=== PATIENT | female | born 1990 | race African-American/Black ===

== ENCOUNTER 2016-12-27 17:40 | Inpatient (IN) ==
[2016-12-27] MEDS ORDERED: Vancomycin 1,000 MG in D5% in Water 250 ML IVPB ONE (18:36)
[2016-12-27] MEDS ORDERED: Tdap (Boostrix) Vaccine 0.5 ML SYRINGE IM ONE (18:37)
[2016-12-27] MEDS ORDERED: Ketorolac 15 MG/ML VIAL IVP ONE (18:37)
--- NOTE | 2016-12-27 18:41 | Emergency Department Note ---
Disposition Clinical Impression: Abscess of skin or subcutaneous tissue Qualifiers: Site of cutaneous abscess: extremity Site of cutaneous abscess of extremity: hand Laterality: right Qualified Code(s): L02.511 - Cutaneous abscess of right hand Cellulitis Qualifiers: Site of cellulitis: extremity Site of cellulitis of extremity: upper extremity Laterality: right Qualified Code(s): L03.113 - Cellulitis of right upper limb Disposition: Admitted As Inpatient Condition: Fair Skin/Abscess/FB HPI Chief complaint: ED Skin/Abscess/Foreign Body Stated complaint: abscess to right hand, arm swelling Time Seen by Provider: 12/27/16 18:24 Source: patient, family Mode of arrival: private vehicle Limitations: no limitations Nursing Notes Reviewed: Yes Vital Signs Reviewed: Yes Pt Subjective Complaint: abscess/boil, other (hand swelling, redness and pain) Onset (ago): day(s) (3) Tetanus Up to Date: no Location: R hand Severity: severe Quality: stabbing, aching, sharp Consistency: constant Improves with: immobilization, rest Worsens with: palpation, movement Context: other (Unsure, patient states, "It just popped up." Patient does have some scratches on both hands which she states are from a kitten. She also has Hx of IVDA but denies recent use. ) Associated symptoms: Denies: fever, chills, rigors, itching, nausea, vomiting, malaise, arthralgias, myalgias, cough, shortness of breath Treatments prior to arrival: none Home Medications Medication Instructions Recorded Confirmed Multivitamin [One Daily 1 each PO DAILY 12/27/16 12/27/16 Multivitamin] Allergies Allergy/AdvReac Type Severity Reaction Status Date / Time Penicillins Allergy Hives Verified 01/10/15 11:27 All systems ED: reviewed and negative except as stated. Review of Systems: As Per HPI Constitutional: Denies: fever, chills, weakness Cardiovascular: Denies: chest pain, palpitations Respiratory: Denies: dyspnea Gastrointestinal: Denies: abdominal pain, nausea, vomiting Neurological: Denies: headache, weakness, numbness, paresthesias Hematological/Lymphatic: Denies: easy bleeding, easy bruising Past Medical History - Past Medical History Attestation: Yes The following information was validated with the patient. Source: patient, old records reviewed, nursing notes reviewed Medical history: Reports: no medical history Psychiatric history: Reports: no psych history LMP comments: none - Social History Smoking Status: Current every day smoker Smokeless Tobacco Status: No Alcohol use: Reports: occasionally Drug use: Reports: none, marijuana, IV Drug Use Physical Exam - General Limitations: no limitations General appearance: alert, in no apparent distress, appears intoxicated - Head Head exam: atraumatic, normocephalic, normal inspection - Eye Eye exam: Present: normal appearance, PERRL. Absent: scleral icterus, conjunctival injection, periorbital swelling - ENT ENT exam: mucous membranes moist - Neck Neck exam: Present: normal inspection - Chest Chest inspection: Present: normal inspection - Respiratory Respiratory exam: Absent: respiratory distress - Cardiovascular Cardiovascular exam: Present: normal rhythm, tachycardia, normal heart sounds - Extremities Exam Extremities exam: Present: tenderness, normal capillary refill, joint swelling - Expanded Upper Extremity Exam Shoulder exam: Present: normal inspection, full ROM. Absent: tenderness, swelling, erythema Arm exam: Present: normal inspection. Absent: tenderness, swelling, erythema Elbow exam: Present: normal inspection, full ROM. Absent: tenderness, swelling , erythema Forearm/Wrist exam: Present: full ROM, tenderness, swelling, erythema Hand exam: Present: tenderness, swelling, erythema. Absent: full ROM Hand L/R front image: 1 - other (tender abscess) 2 - other (edema, tenderness, mild erythema) Neuromotor exam: Normal: wrist extension, thumb IP flexion, thumb adduction, fingers 2-5 abduction. Abnorm: thumb opposition Neurosensory exam: Normal: radial nerve, ulnar nerve. Abnorm: median nerve ( decreased sensation in right palm) Hand tendon exam: Normal: flexor digitorum profundus (location), flexor digitorum superficialis (location), extensor tendon (location) (painful passive and active extension of right fingers 2-5) Vascular exam: Normal: capillary refill, radial pulse, ulnar pulse - Neurological Exam Neurological exam: Present: alert, oriented X3, CN II-XII intact, normal gait - Psychiatric Psychiatric exam: Present: normal affect, normal mood - Skin Skin exam: Present: warm, dry, intact, normal color Course Course Narrative: Patient has an abscess on the, right hand with circumferential edema, tenderness and mild erythema to the right hand. The edema and erythema extends to the distal portion of the right forearm. There is no lymphangitic streaking. She has tenderness to palpation in the wrist and hand. She has pain with passive extension of the right fingers. She is afebrile, but is mildly tachycardic. There does appear to be track fair on the dorsal aspect of the right hand. However, patient denies current IV drug use. We will update her tetanus, obtain CBC and basic metabolic panel and an x-ray, given a dose of IV vancomycin and consult with orthopedist. Case was discussed with Dr. Lawson. He recommends admission to the hospitalist. He or one of his partners will consult on the patient in the morning. Case was discussed with Dr. Mccauley. He has had [id number] time with the patient and agrees with the assessment, plan. The patient has been moved out of fast-track and into his zone. Labs and x-rays are still pending. Case was discussed with the hospitalist. She has accepted the patient for admission. - Consultations Consultation #1: Dr. Lawson paged Time: 18:39 Vital Signs Temperature 98.3 F 12/27/16 18:16 Pulse Rate 102 12/27/16 18:16 Respiratory Rate 16 12/27/16 18:16 Blood Pressure 95/57 12/27/16 18:16 O2 Sat by Pulse Oximetry 97 12/27/16 18:16 Temperature 98.2 F 12/27/16 21:45 Pulse Rate 70 12/27/16 21:45 Respiratory Rate 16 12/27/16 21:45 Blood Pressure 105/69 12/27/16 21:45 O2 Sat by Pulse Oximetry 97 12/27/16 21:45 Oxygen Delivery Oxygen Delivery Room Air Skin/Abscess/Foreign Body - Medical Records Medical records reviewed: Yes I reviewed the patient's medical records. - Lab Data Result diagrams: 12/27/16 20:30 12/27/16 20:30 Attestation Statement - Attestation Attestation: For this encounter, I have reviewed the OFFICE EXECUTIVE or PA documentation, treatment plan, and medical decision making; and I have had face to face time with this patient.
[2016-12-27] MEDS ORDERED: 0.9 % Sodium Chloride 1,000 ML IVC ONE (19:37)
[2016-12-27] MEDS ORDERED: *HR* Promethazine 25 MG/ML VIAL IM ONE (19:38)
[2016-12-27] MEDS ORDERED: *HR* OxyCODONE/APAP 5/325 TABLET PO ONE (19:38)
[2016-12-27] MEDS ORDERED: *HR* Promethazine 25 MG/ML VIAL IVP PRN (19:50)
[2016-12-27] MEDS ORDERED: Ondansetron 4 MG/2 ML VIAL IVP PRN (19:50)
[2016-12-27] MEDS ORDERED: Acetaminophen 325 MG TABLET PO PRN (19:50)
[2016-12-27] MEDS ORDERED: Naloxone 0.4 MG/ML INJ IVP PRN (19:50)
[2016-12-27 20:49] LABS: Basophils % 0.6 %; Eosinophils # 0.5 K/mcL (0.0-0.6); Eosinophils % 8.6 %; Hematocrit 28.2 % (35.3-44.9); Hemoglobin 8.7 g/dL (11.5-15.4); Immature Granulocytes % 0.2 % (0-4); Mean Corpuscular HGB Conc 30.9 g/dL (31.6-35.5); Mean Corpuscular Hemoglobin 22.5 pg (28.0-33.3); Mean Corpuscular Volume 72.9 fL (83.0-100.0); Mean Platelet Volume 10.6 fL (9.4-12.4); Monocytes # 0.7 K/mcL (0.0-1.3); Monocytes % 12.2 %; Neutrophils # 2.2 K/mcL (1.6-8.9); Platelet Count 241 K/mcL (140-400); Red Blood Count 3.87 M/mcL (3.82-4.97); Red Cell Distribution Width 18.7 % (11.5-14.5); Segmented Neutrophils % 41.4 %
[2016-12-27 21:00] LABS: BUN/Creatinine Ratio 12 (6-26); Blood Urea Nitrogen 8 mg/dL (7-20); C-Reactive Protein 35 mg/L (Less than 5); Calcium 8.8 mg/dL (8.6-10.8); Carbon Dioxide 26 mEq/L (19-29); Chloride 105 mEq/L (98-109); Glucose 98 mg/dL (70-99); Osmolality,Calculated 284 (280-300); Potassium 3.9 mEq/L (3.5-4.5); Sodium 138 mEq/L (136-145); eGFR For African Americans > 60 (> 60); eGFR For Non-African Americans > 60 (> 60)
--- NOTE | 2016-12-27 21:38 | Internal Med History&Physical ---
Date of Encounter: 12/27/16 Time of Encounter: 20:00 Assessment and Plan (1) Abscess of right hand Current visit: Yes Status: Acute Will admit the pt into Med Surg Reviewed X ray - no acute fracture, no foreign body noticed Pt denied any trauma.. any IV drug abuse over Rt hand however there are needle fair concerning for source of inf Will start her on empirical abx with Clinda which can cover both MRSA and Anaerobic coverage Cont close monitoring keep hand elevated Ortho consulted by ER. reviewed ESR and CRP will check CK total No signs of compartment syndrome as of now will get MRI of Rt hand / wrist for better eval Cont IV analgesics (2) Cellulitis of right hand Current visit: Yes Status: Acute (3) IV drug abuse Current visit: Yes Status: Acute counseled to quit drugs will check UDS Will watch for any withdrawal symptoms (4) Tobacco dependence Current visit: Yes Status: Acute Counseled to quit on nicotine patch Internal Medicine - H&P: HPI Chief complaint: Rt hand swelling Admitted From: Emergency Dept Plans for Post Hospital Care: Home History of present illness: Ms. Vargas is a 26 year old female with known IV drug abuse pt, no significant PMH pt presented to ER with c/o Rt wrist swelling and erythema, as well as severe tenderness. As per pt it started as a small pimple in the [place] side then noticed worsening swelling Rt hand dorsum and wrist region. Her pain 10/10 in severity, stabbing type pain. She did mention previous history of abscess, but does not know about MRSA Past Med Surg Social Fam HX - Past Medical History Medical history: no medical history Psychiatric history: no psych history - Social History Smoking Status: Current every day smoker Smokeless Tobacco Status: No Alcohol use: occasionally Drug use: none, marijuana, IV Drug Use - Additional Family History Additional family history: Family hsitory reviewed and non contribuitory to current problem. Internal Medicine - H&P: Meds Multivitamin [One Daily Multivitamin] 1 each PO DAILY 12/27/16 [History] 3 Allergy/AdvReac Type Severity Reaction Status Date / Time Penicillins Allergy Hives Verified 01/10/15 11:27 All Systems PM: A 10-system review of systems was performed and is negative for pertinent findings except as documented above in the HPI. Review of systems: All the systems are reviewed everything is benign except the systems and symptoms I mentioned in the history of present illness - Constitutional Vitals: Temp Pulse Resp BP Pulse Ox 98.3 F 100 20 98/58 98 12/27/16 18:16 12/27/16 21:07 12/27/16 21:07 12/27/16 21:07 12/27/16 21:07 General appearance: Present: A&O X 3, no acute distress, answers questions appropriately - Head Head exam: Present: atraumatic, normal inspection - Neck Neck exam general surgery: Present: supple - Respiratory Respiratory exam: Present: decreased breath sounds. Absent: rales, respiratory distress, rhonchi, wheezes - Cardiovascular Cardiovascular exam: Present: RRR, +S1, +S2. Absent: systolic murmur - Extremities Exam Additional comments: Patient has an abscess on the, right hand with circumferential edema, tenderness and mild erythema to the right hand. The edema and erythema extends to the distal portion of the right forearm. - Expanded Upper Extremities Exam Hand wrist exam: Present: erythema, swelling, tenderness - Back Exam Back exam: Absent: CVA tenderness (L), CVA tenderness (R) - Neurological Exam Neurological exam: Present: alert, oriented X3 - Psychiatric Psychiatric exam: Present: normal affect, normal mood - Skin Skin exam: Present: dry Internal Med - H&P Results - Labs CBC & Chem 7: 12/27/16 20:30 12/27/16 20:30 Labs: Short CBC 12/27/16 Range/Units 20:30 WBC 5.3 (4.3-11.1) K/mcL Hgb 8.7 L (11.5-15.4) g/dL Hct 28.2 L (35.3-44.9) % Plt Count 241 (140-400) K/mcL Neutrophils # 2.2 (1.6-8.9) K/mcL BMP 12/27/16 20:30 Sodium 138 Potassium 3.9 Chloride 105 Carbon Dioxide 26 BUN 8 Creatinine 0.69 Glucose 98 Calcium 8.8
[2016-12-28] MEDS: Clindamycin 600 MG/50 ML 600 MG/50 ML IV.SOLN IVPB SCH ×3 (00:21→15:15)
--- NOTE | 2016-12-28 06:18 | Orthopedic Consult Note ---
Date of Encounter: 12/28/16 Time of Encounter: 06:15 Assessment and Plan (1) Abscess of skin or subcutaneous tissue Current Visit: Yes Status: Acute I did discuss the diagnosis in great detail to patient. She has a right palm abscess as well as another phlegmon/abscess on the volar radial and distal aspect of the forearm. Treatment options were discussed and my recommendation was for incision, drainage, irrigation, debridement of both areas in order to help facilitate treatment of the infection as well as to obtain cultures. The risks discussed included but were not limited to stiffness, bleeding, infection , blood clots, damage to neurovascular structures, tendons, ligaments, and bone. Also discussed was the risk of continued symptoms and possible need for further procedures. I did discuss the risk of injury to the radial artery given the proximity to the abscess. She did verbalize consent and a signed formal consent was obtained. The sterile field was set up around the right hand and wrist area and a total of 20 mL of 1% lidocaine with epinephrine were injected into the areas of abscess. The distal forearm area a 1 cm longitudinal incision was made over the area of maximal induration and the soft tissue was spread bluntly and no gross purulence was obtained. The area was packed open. In the palm a small 1 cm oblique incision was made and gross purulence was encountered which was cultured. The wound was copiously irrigated and the wound was packed open with quarter-inch gauze packing. A sterile dressing was applied. I recommendation at this point is IV antibiotics per the primary team as well as elevation and Toradol. I will follow clinically with you. No plans for operative intervention at this time. She can eat. Qualifiers: Site of cutaneous abscess: extremity Site of cutaneous abscess of extremity : hand Laterality: right Qualified Code(s): L02.511 - Cutaneous abscess of right hand History of Present Illness HPI: Ms. Vargas is a 26 year old female known IV drug user who was admitted to the hospitalist with a right palmar abscess. Orthopedics was consulted to assist in the evaluation and management of this. On my evaluation the patient had initially denied injecting recently to the right hand but after discussing that this was most likely an injection type injury she did admit to injecting cocaine into the dorsal aspect of her right hand 2 weeks ago. She still denies injecting into the right palm or anywhere else otherwise. She says that she thinks a blister developed in that area which turned into the infection. Nevertheless she says she has had pain for about 2-3 days without any associated numbness, tingling, or any other associated signs or symptoms. She denies any other infections. She says the pain is worse with movement and use without any other modifying factors. She has no other complaints and denies any feelings of illness. Past Med Surg Social Fam HX - Past Medical History Medical history: no medical history Psychiatric history: no psych history - Social History Smoking Status: Current every day smoker Smokeless Tobacco Status: No Alcohol use: occasionally Drug use: none, marijuana, IV Drug Use Medications and Allergies Multivitamin [One Daily Multivitamin] 1 each PO DAILY 12/27/16 [History] 3 Allergy/AdvReac Type Severity Reaction Status Date / Time Penicillins Allergy Hives Verified 01/10/15 11:27 All Systems Reviewed: Constitutional and musculoskeletal systems were reviewed and are negative unless otherwise stated in history of present illness. Physical Exam - Constitutional Vitals: Temp Pulse Resp BP Pulse Ox 98.0 F 66 12 111/75 100 12/28/16 04:51 12/28/16 04:51 12/28/16 04:51 12/28/16 04:51 12/28/16 04:51 CONSTITUTIONAL -Vitals reviewed -The patient is well developed, well nourished, well groomed PSYCHIATRIC -Fully alert and oriented -Pleasant mood RIGHT UPPER EXTREMITY Inspection shows that the skin and the soft tissue envelope are intact. There are 2 raised indurated areas, one in the palm just distal to the proximal flexion crease between the index and long finger metacarpal head areas. Also on the volar radial aspect of the distal forearm there is a small raised area with induration. Minimal surrounding cellulitis throughout. Moderate swelling to the hand and the forearm area though all compartments are soft and compressible. She has tenderness to palpation both of these areas. She has no pain with active and passive motion of the shoulder or elbow. Moderate pain with wrist motion referred to the area of abscess. She grossly flex and extend the digits with stiffness related to edema and pain. It is difficult to palpate the radial artery given the area of infection. Diagnostic Imaging: I did personally review and interpret the x-ray, CT scan and MRI of the right hand which did show an area of phlegmon/abscess in the volar radial and distal forearm area and the volar palm. These appear to be superficial. Results - Labs Result Diagrams: 12/27/16 20:30 12/27/16 20:30 Labs: Abnormal lab results Hgb 8.7 g/dL (11.5-15.4) L 12/27/16 20:30 Hct 28.2 % (35.3-44.9) L 12/27/16 20:30 MCV 72.9 fL (83.0-100.0) L 12/27/16 20:30 MCH 22.5 pg (28.0-33.3) L 12/27/16 20:30 MCHC 30.9 g/dL (31.6-35.5) L 12/27/16 20:30 RDW 18.7 % (11.5-14.5) H 12/27/16 20:30 ESR 54 mm/hr (0-15) H 12/27/16 20:30 C-Reactive Protein 35 mg/L (Less than 5) H 12/27/16 20:30 All other labs normal. Consult Discharge Plan - Plan Referrals: NONE,PCP [Primary Care Provider] -
[2016-12-28 07:29] LABS: Eosinophils # 0.3 K/mcL (0.0-0.6); Eosinophils % 6.1 %; Hematocrit 26.9 % (35.3-44.9); Hemoglobin 8.2 g/dL (11.5-15.4); Lymphocytes # 1.7 K/mcL (0.6-4.6); Lymphocytes % 40.5 %; Mean Corpuscular HGB Conc 30.5 g/dL (31.6-35.5); Mean Corpuscular Volume 72.3 fL (83.0-100.0); Monocytes # 0.5 K/mcL (0.0-1.3); Neutrophils # 1.6 K/mcL (1.6-8.9); Platelet Count 181 K/mcL (140-400); Red Blood Count 3.72 M/mcL (3.82-4.97); Red Cell Distribution Width 18.7 % (11.5-14.5); Segmented Neutrophils % 40.4 %
[2016-12-28] MEDS: *HR* HYDROcodone/Acet 5/325 mg TABLET PO PRN ×2 (12:49→17:48)
[2016-12-28 14:33] LABS: Creatine Kinase 123 Units/L (29-168)
[2016-12-28] MEDS: *HR* Morphine 2 MG/ML SYRINGE IVP PRN (15:15)
--- NOTE | 2016-12-28 18:25 | Internal Med Progress Note ---
Date of Encounter: 12/28/16 Time of Encounter: 11:00 - Assessment and plan (1) Abscess of right hand Current Visit: Yes Status: Acute Assessment and plan: -Incision and drainage today by orthopedic surgery -Cultures were taken and are pending -Continue IV clindamycin and pain control (2) IV drug abuse Current Visit: Yes Status: Acute Assessment and plan: -Urine drug tox pending (3) Tobacco dependence Current Visit: Yes Status: Acute Assessment and plan: Will discuss smoking cessation - Subjective Interval history: No acute events overnight. - Constitutional Vitals: Temp Pulse Resp BP Pulse Ox 98.2 F 80 18 105/65 93 12/28/16 14:57 12/28/16 14:57 12/28/16 14:57 12/28/16 14:57 12/28/16 14:57 General appearance: Present: A&O X 3, no acute distress, answers questions appropriately - Respiratory Respiratory exam: Present: CTAB. Absent: accessory muscle use, rales, rhonchi, wheezes - Cardiovascular Cardiovascular exam: Present: RRR, +S1, +S2. Absent: diastolic murmur, gallop, rubs, systolic murmur Internal Medicine: Result - Labs CBC & Chem 7: 12/28/16 07:17 12/27/16 20:30 Labs: Short CBC 12/28/16 Range/Units 07:17 WBC 4.1 L (4.3-11.1) K/mcL Hgb 8.2 L (11.5-15.4) g/dL Hct 26.9 L (35.3-44.9) % Plt Count 181 (140-400) K/mcL Neutrophils # 1.6 (1.6-8.9) K/mcL Consult Discharge Plan - Plan Referrals: NONE,PCP [Primary Care Provider] -
[2016-12-29] MEDS: Clindamycin 600 MG/50 ML 600 MG/50 ML IV.SOLN IVPB SCH ×3 (01:10→15:04)
[2016-12-29] MEDS: *HR* HYDROcodone/Acet 5/325 mg TABLET PO PRN ×4 (01:12→16:37)
[2016-12-29] MEDS: *HR* Morphine 2 MG/ML SYRINGE IVP PRN (07:00)
--- NOTE | 2016-12-29 07:31 | Orthopedics Progress Note ---
Date of Encounter: 12/29/16 Time of Encounter: 07:28 - Assessment and Plan (1) Abscess of skin or subcutaneous tissue Current Visit: Yes Status: Acute I did discuss the diagnosis in great detail to patient. She has a right palm abscess as well as another phlegmon/abscess on the volar radial and distal aspect of the forearm. Treatment options were discussed and my recommendation was for incision, drainage, irrigation, debridement of both areas in order to help facilitate treatment of the infection as well as to obtain cultures. The risks discussed included but were not limited to stiffness, bleeding, infection , blood clots, damage to neurovascular structures, tendons, ligaments, and bone. Also discussed was the risk of continued symptoms and possible need for further procedures. I did discuss the risk of injury to the radial artery given the proximity to the abscess. She did verbalize consent and a signed formal consent was obtained. The sterile field was set up around the right hand and wrist area and a total of 20 mL of 1% lidocaine with epinephrine were injected into the areas of abscess. The distal forearm area a 1 cm longitudinal incision was made over the area of maximal induration and the soft tissue was spread bluntly and no gross purulence was obtained. The area was packed open. In the palm a small 1 cm oblique incision was made and gross purulence was encountered which was cultured. The wound was copiously irrigated and the wound was packed open with quarter-inch gauze packing. A sterile dressing was applied. I recommendation at this point is IV antibiotics per the primary team as well as elevation and Toradol. I will follow clinically with you. No plans for operative intervention at this time. She can eat. Qualifiers: Site of cutaneous abscess: extremity Site of cutaneous abscess of extremity : hand Laterality: right Qualified Code(s): L02.511 - Cutaneous abscess of right hand Subjective Interval history: S: Resting in bed comfortably. The patient has no new complaints. Persistent pain to the right hand and volar wrist area. Per the nursing staff she lacks herself in the bathroom multiple times with the family member/friend, during which the activities are not entirely clear. O: Afebrile and vital signs are stable Evaluation of the right hand and the wrist shows moderate swelling diffusely of the hand and distal forearm area with expected tenderness over the I&D sites. The packing is removed and there is no purulent drainage. The patient can grossly flex and extend the digits with limitation due to pain and swelling. The fingertips are all grossly sensate and well-perfused, and the radial artery pulse is 2+. A: Post-incision, drainage, irrigation, and debridement of the right palm and volar forearm P: At this point my recommendation is continue local wound care (daily dressing and packing changes), strict elevation, occupational therapy to work on digital motion exercises, and antibiotics per the primary team. Objective Vital signs: Vital Signs Temp Pulse Resp BP Pulse Ox 12/29/16 06:43 98.2 F 97 16 123/76 98 12/28/16 23:05 97.9 F 93 16 118/70 98 12/28/16 19:06 98.8 F 82 16 93/58 100 12/28/16 14:57 98.2 F 80 18 105/65 93 12/28/16 11:07 98.4 F 91 18 107/64 93 Intake and Output 12/28/16 12/28/16 12/29/16 15:59 23:59 07:59 Intake Total 340 / 340 700 / 700 850 / 850 Balance 340 / 340 700 / 700 850 / 850 Intake: IV Fluids 100 / 100 50 / 50 Cleocin Premix 600 MG/50 ML 600 100 / 100 50 / 50 mg In 50 ml @ 50 mls/hr IVPB Q8HR [facility] Rx#:[id number] Oral 240 / 240 700 / 700 800 / 800 Other: Meal Breakfast Dinner Percent of Meal Consumed 75% 50% # Voids 2 3 - Labs CBC & BMP: 12/28/16 07:17 12/27/16 20:30 Labs: Abnormal lab results WBC 4.1 K/mcL (4.3-11.1) L 12/28/16 07:17 RBC 3.72 M/mcL (3.82-4.97) L 12/28/16 07:17 Hgb 8.2 g/dL (11.5-15.4) L 12/28/16 07: Hct 26.9 % (35.3-44.9) L 12/28/16 07:17 MCV 72.3 fL (83.0-100.0) L 12/28/16 07:17 MCH 22.0 pg (28.0-33.3) L 12/28/16 07: MCHC 30.5 g/dL (31.6-35.5) L 12/28/16 07:17 RDW 18.7 % (11.5-14.5) H 12/28/16 07:17 ESR 54 mm/hr (0-15) H 12/27/16 20:30 C-Reactive Protein 35 mg/L (Less than 5) H 12/27/16 20:30 Consult Discharge Plan - Plan Referrals: NONE,PCP [Primary Care Provider] -
[2016-12-29 12:06] VITALS: BP 104/58
--- NOTE | 2016-12-29 15:40 | Discharge Summary ---
Date of Encounter: 12/29/16 Time of Encounter: 11:00 - Discharge Diagnosis (1) Abscess of right hand Priority: Primary Status: Acute (2) IV drug abuse Priority: Secondary Status: Acute (3) Tobacco dependence Priority: Secondary Status: Acute - Discharge Medications Prescriptions: HYDROcodone/Acet 5/325 mg [Rosamond 5-325 mg] 1 tab PO Q6H PRN #20 tablet PRN Reason: Moderate Pain (4-6) Sulfamethoxazole/Trimeth DS [Bactrim DS] 1 each PO BID #20 tablet Home Medications: Multivitamin [One Daily Multivitamin] 1 each PO DAILY 12/27/16 [History] HYDROcodone/Acet 5/325 mg [Rosamond 5-325 mg] 1 tab PO Q6H PRN #20 tablet 12/29/16 [Rx] Sulfamethoxazole/Trimeth DS [Bactrim DS] 1 each PO BID #20 tablet 12/29/16 [Rx] Allergies/Adverse Reactions: 3 Allergy/AdvReac Type Severity Reaction Status Date / Time Penicillins Allergy Hives Verified 01/10/15 11:27 Date of admission: 12/27/16 21:42 Primary care physician: PCP NONE Consults: 12/28/16 06:34 Consult to Infantryman [CONS] Routine Reason for SW Consult: Possible need for IV antibiotics, history of IV drug use so may need ECF placement if fpc IV antibiotics are needed 12/29/16 08:00 Consult to Occupational Therapy [CONS] Routine Comment: Evaluate, develop and implement POC Reason for Consult: function of right hand s/p I&D of abscess - Patient Status Disposition: Home Health Service Condition: Fair - Discharge Instructions Follow Up With: NONE,PCP [Primary Care Provider] - Hospital course: Patient is a 26 year old female with past medical history significant for IV drug abuse who presented to the ER on 12/27/16 with right wrist redness and swelling. Patient also reported of severe tenderness with a severity of 10 out of 10 that she characterized as a stabbing pain. She did mention previous history of abscess. During patients hospital stay, orthopedic surgery was consulted and an incision , drainage, irrigation and debridement was done of the right palm volar forearm. She was also treated with IV antibiotics during her hospital stay as well. Recommendations from orthopedics for continued local wound care (daily dressing and packing changes), strict elevation, occupational therapy to work on digital motion exercises, and to complete oral antibiotics as an outpatient. - Time Spent with Patient Total time spent providing and/or coordinating discharge services: - Constitutional Vitals: Temp Pulse Resp BP Pulse Ox 98.3 F 87 16 104/58 96 12/29/16 09:57 12/29/16 09:57 12/29/16 09:57 12/29/16 09:57 12/29/16 09:57 General appearance: Present: A&O X 3, no acute distress, answers questions appropriately - Respiratory Respiratory exam: Present: CTAB. Absent: accessory muscle use, rales, rhonchi, wheezes - Cardiovascular Cardiovascular exam: Present: RRR, +S1, +S2. Absent: diastolic murmur, gallop, rubs, systolic murmur
--- NOTE | 2016-12-30 10:14 | Physician Discharge Referral ---
Home Health/Hosp Referral Info Transfer to: Home Health - Diagnosis (1) Abscess of right hand Status: Acute (2) IV drug abuse Status: Acute (3) Tobacco dependence Status: Acute - Respiratory Orders Smoking Cessation: Smoking cessation has been advised. For more information, call the [place] Tobacco Quit Line at 0-554-HEUI-NOW. - Transfer Medications Prescriptions: HYDROcodone/Acet 5/325 mg [Temple 5-325 mg] 1 tab PO Q6H PRN #20 tablet PRN Reason: Moderate Pain (4-6) Sulfamethoxazole/Trimeth DS [Bactrim DS] 1 each PO BID #20 tablet Home Medications: Multivitamin [One Daily Multivitamin] 1 each PO DAILY 12/27/16 [History] HYDROcodone/Acet 5/325 mg [Temple 5-325 mg] 1 tab PO Q6H PRN #20 tablet 12/29/16 [Rx] Sulfamethoxazole/Trimeth DS [Bactrim DS] 1 each PO BID #20 tablet 12/29/16 [Rx] Allergies/Adverse Reactions: 3 Allergy/AdvReac Type Severity Reaction Status Date / Time Penicillins Allergy Hives Verified 01/10/15 11:27 Certification: Further, I certify that my clinical findings support that this patient is homebound (i.e. absences from home require considerable and taxing effort and are for medical reasons or sabianist services or infrequently or short duration when for other reasons) because: Homebound Reason: Post-surgery restriction and or conditions limit ability to leave home Attestation: My signature below is to certify that this patient is under my care and that I, or nurse practitioner, or a physician's library technical assistant working with me, has a face-to -face encounter with this patient.
[2016-12-30 16:41] LABS: Amphetamines NEGATIVE ng/mL (Cutoff 30); Barbiturates NEGATIVE ng/mL (Cutoff 75); Benzodiazepines NEGATIVE ng/mL (Cutoff 75); Cocaine NEGATIVE ng/mL (Cutoff 30); Methadone NEGATIVE ng/mL (Cutoff 40); Methamphetamines NEGATIVE ng/mL (Cutoff 30); Opiates NEGATIVE ng/mL (Cutoff 30); Phencyclidine NEGATIVE ng/mL (Cutoff 15)
== END 2016-12-29 17:00 | disposition home health service (06) | DRG 364 ==
LOC: 3NENU 17:40 → EMEROO 17:40 → 3NENU 21:32 → SUATTDRO 21:42
PROVIDERS: ADMIT Family Medicine; ATTEND Hospitalist

== ENCOUNTER 2017-11-14 14:42 | Observation (INO) ==
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
[2017-11-14 15:55] LABS: Basophils % 0.5 %; Eosinophils # 0.2 K/mcL (0.0-0.6); Eosinophils % 4.2 %; Hematocrit 33.6 % (35.3-44.9); Hemoglobin 10.5 g/dL (11.5-15.4); Immature Granulocytes % 0.2 % (0-4); Lymphocytes # 1.8 K/mcL (0.6-4.6); Mean Corpuscular HGB Conc 31.3 g/dL (31.6-35.5); Mean Corpuscular Hemoglobin 22.8 pg (28.0-33.3); Mean Platelet Volume 10.8 fL (9.4-12.4); Monocytes # 0.5 K/mcL (0.0-1.3); Neutrophils # 2.9 K/mcL (1.6-8.9); Platelet Count 236 K/mcL (140-400); Red Cell Distribution Width 19.7 % (11.5-14.5); Segmented Neutrophils % 53.1 %
[2017-11-14 16:22] LABS: Alanine Aminotransferase 15 Units/L (7-52); Albumin/Globulin Ratio 1.3 (1.1-2.2); Alkaline Phosphatase 54 Units/L (34-104); Aspartate Amino Transferase 19 Units/L (13-39); BUN/Creatinine Ratio 20 (6-26); Bilirubin,Total 0.4 mg/dL (0.3-1.0); Blood Urea Nitrogen 15 mg/dL (6-20); Carbon Dioxide 23 mEq/L (23-29); Chloride 107 mEq/L (98-107); Glucose 86 mg/dL (70-105); Osmolality,Calculated 284 (280-300); Potassium 3.6 mEq/L (3.5-5.1); Sodium 137 mEq/L (136-145); eGFR For Non-African Americans > 60 (> 60)
[2017-11-14] MEDS ORDERED: [UNRECOGNIZED DRUG - OTHER] PO ONE (17:11)
[2017-11-14] MEDS ORDERED: Azithromycin 250 MG TABLET PO ONE (17:12)
[2017-11-14] MEDS ORDERED: metroNIDAZOLE 500 MG TABLET PO ONE (17:12)
[2017-11-14] MEDS ORDERED: Ondansetron ODT 4 MG TAB.RAPDIS SL ONE (17:12)
[2017-11-14] MEDS ORDERED: cefTRIAXone 250 MG VIAL IM ONE (17:12)
[2017-11-14 18:35] LABS: Ethanol < 10 mg/dL (Less than 10)
[2017-11-14 18:41] LABS: HIV-1&2 Antibody & p24 Ag Nonreactive (Nonreactive)
[2017-11-14 18:43] LABS: Hepatitis B Surface Antibody 1654.97 mIU/mL
[2017-11-14 18:52] LABS: Amphetamine Screen,Urine Negative ng/mL (Cutoff=1000); Barbiturate Screen,Urine Negative ng/mL (Cutoff=200); Benzodiazepines Screen,Urine Positive ng/mL (Cutoff=200); Cannabinoid Screen,Urine Positive ng/mL (Cutoff = 50); Cocaine Screen,Urine Positive ng/mL (Cutoff= 300); Opiate Screen,Urine Negative ng/mL (Cutoff=300); Phencyclidine Screen,Urine Negative ng/mL (Cutoff=25)
[2017-11-14] MEDS ORDERED: Acetaminophen 325 MG TABLET PO PRN (21:06)
[2017-11-14] MEDS ORDERED: Ondansetron ODT 4 MG TAB.RAPDIS SL PRN (21:06)
[2017-11-14] MEDS ORDERED: Naloxone 0.4 MG/ML INJ IVP PRN (21:06)
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
[2017-11-15] MEDS: 0.9 % Sodium Chloride 1,000 ML IVC SCH ×4 (03:21→21:41)
[2017-11-15 05:06] LABS: Basophils % 0.9 %; Eosinophils # 0.2 K/mcL (0.0-0.6); Eosinophils % 5.8 %; Hematocrit 29.1 % (35.3-44.9); Hemoglobin 9.1 g/dL (11.5-15.4); Lymphocytes # 1.9 K/mcL (0.6-4.6); Lymphocytes % 56.4 %; Mean Corpuscular HGB Conc 31.3 g/dL (31.6-35.5); Mean Corpuscular Volume 70.5 fL (83.0-100.0); Mean Platelet Volume 10.9 fL (9.4-12.4); Monocytes # 0.3 K/mcL (0.0-1.3); Monocytes % 9.4 %; Neutrophils # 0.9 K/mcL (1.6-8.9); Platelet Count 217 K/mcL (140-400); Red Blood Count 4.13 M/mcL (3.82-4.97); Red Cell Distribution Width 19.5 % (11.5-14.5); Segmented Neutrophils % 27.5 %
[2017-11-15 05:23] LABS: Alanine Aminotransferase 14 Units/L (7-52); Albumin 3.5 g/dL (3.5-5.7); Albumin/Globulin Ratio 1.4 (1.1-2.2); Alkaline Phosphatase 51 Units/L (34-104); Aspartate Amino Transferase 18 Units/L (13-39); BUN/Creatinine Ratio 14 (6-26); Bilirubin,Total 0.3 mg/dL (0.3-1.0); Blood Urea Nitrogen 11 mg/dL (6-20); Calcium 8.4 mg/dL (8.6-10.3); Carbon Dioxide 26 mEq/L (23-29); Chloride 107 mEq/L (98-107); Globulin 2.5 g/dL (2.4-3.5); Glucose 96 mg/dL (70-105); Osmolality,Calculated 283 (280-300); Potassium 3.5 mEq/L (3.5-5.1); Sodium 137 mEq/L (136-145); eGFR For Non-African Americans > 60 (> 60)
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
[2017-11-15] MEDS ORDERED: RALTEGRAVIR POTASSIUM 400 MG TABLET PO SCH (09:00)
[2017-11-15] MEDS: RALTEGRAVIR 400 MG PO SCH ×2 (09:24→21:46)
[2017-11-15] MEDS: TENOFOVIR PO SCH (09:24)
[2017-11-15] MEDS: EMTRICITABINE PO SCH (09:24)
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
[2017-11-16] MEDS: 0.9 % Sodium Chloride 1,000 ML IVC SCH ×2 (05:53→14:31)
--- NOTE | 2017-11-16 07:46 | Electrocardiograph Report ---
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
--- NOTE | 2017-11-16 08:34 | Electrocardiograph Report ---
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
[2017-11-16] MEDS: TENOFOVIR PO SCH (10:04)
[2017-11-16] MEDS: RALTEGRAVIR 400 MG PO SCH ×2 (10:04→22:11)
[2017-11-16] MEDS: EMTRICITABINE PO SCH (10:04)
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
[2017-11-16 13:02] LABS: Hepatitis C Virus Antibody Reactive (Nonreactive)
[2017-11-16] MEDS: hydrOXYzine pamoate 25 MG CAPSULE PO PRN (22:10)
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
[2017-11-17] MEDS: 0.9 % Sodium Chloride 1,000 ML IVC SCH (09:20)
[2017-11-17] MEDS: RALTEGRAVIR 400 MG PO SCH (09:22)
[2017-11-17] MEDS: EMTRICITABINE PO SCH (09:23)
[2017-11-17] MEDS: TENOFOVIR PO SCH (09:23)
[2017-11-17] MEDS: hydrOXYzine pamoate 25 MG CAPSULE PO PRN (11:13)
[2017-11-17 11:59] VITALS: BP 106/65
[2017-11-18 15:37] LABS: HCV Quant Log NOT DETECTED log IU/mL
== END 2017-11-17 13:34 | disposition other institution (70) ==
LOC: 3BNU 14:42 → EMEROOARM 14:42 → SUATTDRO 19:47 → 3BNU 21:12
PROVIDERS: ADMIT Pediatrics; ATTEND Internal Medicine